=== PATIENT | male | born 1935 | race Caucasian/White ===

== ENCOUNTER → 2017-02-07 | Outpatient (CLI) | payer OTHER ==
[~2017-02-07] MED LIST: CLEOCIN HCL300 MG PO; LISINOPRIL20 MG PO; NORCO 5-325 TA1 EACH PO; PRILOSEC40 MG PO; TRAMADOL-ACETA1 EACH PO; XANAX 0.5 MG0.5 MG PO; ZIAC 2.5-6.251 EACH PO; ZOCOR20 MG PO
== END ==
LOC: RAD 08:54
DX: K44.9 Diaphragmatic hernia without obstruction or gangrene (principal)

== ENCOUNTER → 2017-04-03 | Outpatient (CLI) | payer OTHER ==
[~2017-04-03] VITALS: Ht 172.7 cm; Wt 59.4 kg
[~2017-04-03] MED LIST changes: +ALEVE220 MG PO
--- NOTE | ~2017-04-03 | HPC ---
[facility] [place] [address] PAIN MANAGEMENT CONSULTATION Name: RYAN KRUGER Room #: REG [facility].#: [id number] Admission: 04/03/17 Attend Phys: Ann Cates MD Discharge: Date of : 35 Report #: [id number] THIS REPORT FOR: //name// CC: Ann Mckeon MD DATE OF SERVICE: 04/03/2017 Seen on 04/03/[address] Janine Caets. PRIMARY CARE PHYSICIAN: Constantino Mckeon M.D. CHIEF COMPLAINT: "Pain in the right leg and I cannot walk or stand very long without it hurting." FOLLOWUP HISTORY: The patient is an 81-year-old gentleman who has been referred to the pain clinic for evaluation. The patient states that he likes to be very busy. He has noted some pain in his low back with radiation down into his leg, particularly on the right side. This was first encountered in mid January on about the . He denies any trauma. He notes that standing for some time can increase pain. He has difficulty shaving, brushing his teeth without onset of pain and discomfort in his back. He notes that activities of daily living such as cooking or standing in the kitchen can worsen his pain and discomfort. He notes this pain improves when he sits down. He is unable to lie on his stomach. This exacerbates pain in his back. He likes to lay on his side in a more position. He has difficulty walking outside and engaging in gardening and other things, which he likes to do. He knows that he must sit down after a short period of time. Walking in a store, use of a cart leaning over it improves his discomfort. He describes his discomfort as continuous, burning, shooting, throbbing and sharp. It can continue to increase in discomfort to the level of a 9. He has not had back surgery. ALLERGIES: SULFA, LIPITOR. MEDICATIONS: Naprosyn 220 mg p.r.n., Xanax 0.5 mg, Zocor 20 mg, Prilosec 40 mg, Zestril 20 mg, tramadol 37.5/325, Ziac 2.5/6.25. PAST MEDICAL HISTORY: 1. Bilateral numbness and tingling in his arms and legs. 2. Chest pain. 3. Essential hypertension. 4. Hearing problem. 5. Hyperlipidemia. 6. Insomnia. [facility] [address] [place] [address] PAIN MANAGEMENT CONSULTATION Name: RYAN KRUGER Room #: REG CL Tran#: [id number] Admission: 04/03/17 Attend Phys: Ann Cates MD Discharge: Date of : 35 Report #: [id number] PAST SURGICAL HISTORY: Appendectomy, cholecystectomy, hernia repair 02/2017, 05/2000, rotator cuff repair bilateral, tonsillectomy, wisdom teeth extraction. FAMILY HISTORY: Mother is , father is , father had heart problems. SOCIAL HISTORY: Smokes quarter of a pack of cigarettes per day, has smoked for 50 years. REVIEW OF SYSTEMS: Questionnaire in the chart, 14-point reveals recent weight change, decreased appetite, fatigue, weakness, wears glasses, hearing loss, loss of appetite, tremors, depression. LABORATORY DATA: No laboratory value is available at the time of our interview. PHYSICAL EXAMINATION: Blood pressure 151/81, pulse 64, respiratory rate 14, room air saturation is 96%. Height 5 feet 8 inches, weight 131 pounds, BMI 19. The patient has not fallen in the last 3 months. He has pain and discomfort in the lower portion of his back. He notes that standing for greater than 10 minutes can be problematic and bring on back pain, which radiates down the lower portion of his back into the L4-L5 distribution. He notes some pain in his right lower back as well as in the right groin area. He sometimes gets a burning stinging pain down into the anterior calf on the right hand side. Notes some weakness associated with this. IMPRESSION: Clinical findings consistent with spinal stenosis and lumbar radiculopathy. RECOMMENDATIONS: We discussed treatment options with the patient. Risks and benefits of an epidural steroid injection were discussed. A model was used to indicate the area of probable pathology. Risks and benefits of an epidural steroid injection, which could include infection, increased muscle soreness, headaches, bleeding, nerve damage were explained and the patient would like to proceed. We will petition his insurance company. After precertification, he will return to the pain clinic at which time he will undergo an epidural steroid injection to help with the lumbar radicular pain in the L5-S1, the L4-L5 lumbar radicular pain, which he is experiencing. By: [id number] Ann Cates MD /gillian
[2017-04-03 10:20] VITALS: BP 151/81
== END | disposition home or self-care (01) ==
LOC: PAIN 07:15
DX: M48.06 Spinal stenosis, lumbar region (principal); M54.16 Radiculopathy, lumbar region; I10 Essential (primary) hypertension; E78.5 Hyperlipidemia, unspecified; F17.210 Nicotine dependence, cigarettes, uncomplicated; Z79.899 Other long term (current) drug therapy; Z98.890 Other specified postprocedural states; Z90.49 Acquired absence of other specified parts of digestive tract; Z88.2 Allergy status to sulfonamides; Z88.8 Allergy status to other drugs, medicaments and biological substances

== ENCOUNTER → 2017-04-05 | Outpatient (CLI) | payer OTHER ==
[~2017-04-05] VITALS: Ht 172.7 cm; Wt 59.4 kg
--- NOTE | ~2017-04-05 | HPC ---
[facility] [place] [address] PAIN MANAGEMENT CONSULTATION Name: RYAN KRUGER [id number] Admission: 04/05/17 Attend Phys: Ann Cates MD Discharge: Date of : 35 Report #: [id number] THIS REPORT FOR: //name// CC: Ann Mckeon DATE OF SERVICE: 04/05/2017 FOLLOWUP COMPLAINT: Spinal stenosis and the insurance company has okayed the procedure. FOLLOWUP HISTORY: The patient is a very pleasant 81-year-old gentleman who has been seen in the pain clinic because of lumbar radiculopathy associated with spinal stenosis. He has pain which is radiating down into his legs with numbness and weakness. He has been approved by his insurance company to proceed with an epidural steroid injection. He has returned to the clinic for this procedure. He has had no new complications or complaints since we saw him last. PHYSICAL EXAMINATION: Blood pressure is 147/68, pulse 64, respiratory rate 12, room air saturation 97%. Height 5 feet 8 inches, weight 131 pounds, BMI is 19 and patient has pain and discomfort which is radiating down into the L4-L5 distribution in his legs. He has weakness, tenderness and discomfort. IMPRESSION: 1. Bilateral numbness and tingling in his arms and legs -- Lumbar radiculopathy. 2. Chest pain. 3. Essential hypertension. 4. Hearing problems. 5. Hyperlipidemia. 6. Insomnia. RECOMMENDATIONS: We discussed treatment options with the patient. Risks and benefits of an epidural steroid injection were again reviewed. Possible complications were explained. The patient will proceed with the procedure for spinal stenosis and lumbar radiculopathy. PROCEDURE NOTE: The patient was placed in the prone position. Fluoroscopy was used to identify the L4-L5 interspace. This area had been sterilely prepped with Betadine and infiltrated with 0.25% bupivacaine. Total of 80 mg Depo-Medrol, 40 mg triamcinolone and 2 mL of 0.25% bupivacaine was injected. The patient's pain decreased from 7 to 2 at the time of discharge. He will [address] [address] PAIN MANAGEMENT CONSULTATION Name: RYAN KRUGER [id number] Admission: 04/05/17 Attend Phys: Ann Cates MD Discharge: Date of : 35 Report #: [id number] follow up in the future as needed. We would like to thank you for letting us participate in his care. We hope he continues to improve. By: [id number] Ann Cates MD /
[2017-04-05 10:22] VITALS: BP 147/68
== END | disposition home or self-care (01) ==
LOC: PAIN 06:56
DX: M48.06 Spinal stenosis, lumbar region (principal); R07.9 Chest pain, unspecified; I10 Essential (primary) hypertension; E78.5 Hyperlipidemia, unspecified; G47.00 Insomnia, unspecified; F17.200 Nicotine dependence, unspecified, uncomplicated; Z88.2 Allergy status to sulfonamides; Z79.899 Other long term (current) drug therapy

== ENCOUNTER → 2017-04-24 | Outpatient (CLI) | payer OTHER ==
[~2017-04-24] VITALS: Ht 172.7 cm; Wt 60.3 kg
[~2017-04-24] MED LIST changes: +ASPIR 8181 MG PO; +SAVELLA25 MG PO
--- NOTE | ~2017-04-24 | HPC ---
[facility] [place] [address] PAIN MANAGEMENT CONSULTATION Name: RYAN KRUGER Room #: REG [facility].#: [id number] Admission: 04/24/17 Attend Phys: Ann Cates MD Discharge: Date of : 35 Report #: [id number] THIS REPORT FOR: //name// CC: Ann Mckeon MD DATE OF SERVICE: 04/24/2017 FOLLOWUP COMPLAINT: "I had greater than 50% improvement after the injection. I am still having some pain when I am walking." FOLLOWUP HISTORY: The patient is an 81-year-old gentleman who has been seen in the Pain Clinic because of spinal stenosis. He had bilateral numbness and tingling in his legs and has continuing to experience pain and discomfort in the L5 distribution, particularly on the right calf. He rates his pain as 10 with activity today. He notes the pain is worse when he is walking, prolonged standing, improves with sitting and denies any problems with bowel or bladder dysfunction after the last injection. PHYSICAL EXAMINATION: Blood pressure 165/91, pulse 65, respiratory rate 16, room air saturation 99%. The patient has pain and discomfort in the L4-L5 distribution with radiation down into his right leg, pain and discomfort in the L4-L5 distribution in his calf area. IMPRESSION: 1. Bilateral numbness and tingling in his legs with lumbar radiculopathy. 2. Chest pain. 3. Essential hypertension. 4. Hearing problems. 5. Hyperlipidemia. 6. Insomnia. RECOMMENDATIONS: We discussed treatment options with the patient. Risks and benefits of an epidural steroid injection were again reviewed. Complications were discussed. At this juncture, the patient will follow up in the Pain Clinic after his insurance company grants him the ability to undergo an epidural steroid injection. He will return to the Pain Clinic at which time an epidural steroid injection in the L4-L5 dermatomal distribution will be performed with use of fluoroscopy. [address] [address] PAIN MANAGEMENT CONSULTATION Name: RYAN KRUGER Room #: REG [facility]#: [id number] Admission: 04/24/17 Attend Phys: Ann Cates MD Discharge: Date of : 35 Report #: [id number] We would like to thank you for letting us participate in his care. We hope he continues to improve. By: 1202 0120 Ann Cates MD /
[2017-04-24 09:55] VITALS: BP 165/91
== END ==
LOC: PAIN 07:14
DX: M54.16 Radiculopathy, lumbar region (principal); I10 Essential (primary) hypertension; E78.4 Other hyperlipidemia; G47.09 Other insomnia; F17.210 Nicotine dependence, cigarettes, uncomplicated; Z88.8 Allergy status to other drugs, medicaments and biological substances

== ENCOUNTER → 2017-05-08 | Outpatient (CLI) | payer OTHER ==
[~2017-05-08] VITALS: Ht 172.7 cm; Wt 60.5 kg
--- NOTE | ~2017-05-08 | HPC ---
[facility] [place] [address] PAIN MANAGEMENT CONSULTATION Name: RYAN KRUGER Room #: REG [facility]#: [id number] Admission: 05/08/17 Attend Phys: Ann Cates MD Discharge: Date of : 35 Report #: [id number] THIS REPORT FOR: //name// CC: Ann Mckeon MD DATE OF SERVICE: 05/08/2017 FOLLOWUP COMPLAINT: Here for another injection. FOLLOWUP HISTORY: The patient is a very pleasant 81-year-old gentleman who has been seen in the pain clinic because of lumbar radiculopathy and spinal stenosis. He has undergone epidural steroid injection. He claims some benefits from the last injection, but continues to find that this pain is problematic and limits his ability to engage in activities of daily living. He rates his pain when he is up and ambulating as 8. He notes that the pain improves when he sits down and when he is not doing much activity. Pain radiates down into the lower portion of his back and into the right buttock. PHYSICAL EXAMINATION: Blood pressure 128/68, pulse 66, respiratory rate 14, room air saturation 97%. Height 5 feet 8 inches, weight 133 pounds, BMI is 20. The patient has pain and discomfort which is radiating down into the lower portion of his back in the L3-L4 distribution. IMPRESSION: 1. Bilateral numbness and tingling in his leg with lumbar radiculopathy. 2. History of chest pain. 3. Essential hypertension. 4. Hearing problems. 5. Hyperlipidemia. 6. Insomnia. RECOMMENDATIONS: We will proceed with another epidural steroid injection. Risks and benefits of the procedure were again reviewed. Possible complications were discussed. The patient elects to proceed. PROCEDURE NOTE: The patient was placed in the prone position. Fluoroscopy was used to identify the L3-L4 interspace. This area had been sterilely prepped with Betadine and infiltrated with 0.25% bupivacaine. Total of 80 mg Depo-Medrol, 40 mg triamcinolone, and 2 mL of 0.5% bupivacaine was injected. The patient tolerated the procedure well. There were no complications. [address] [address] PAIN MANAGEMENT CONSULTATION Name: RYAN KRUGER Room #: REG [facility] Tran#: [id number] Admission: 05/08/17 Attend Phys: Ann Cates MD Discharge: Date of : 35 Report #: [id number] We would like to thank you for letting us participate in his care. We hope he continues to improve. By: [id number] Ann Cates MD /SANTOS
[2017-05-08 10:11] VITALS: BP 128/68
== END | disposition home or self-care (01) ==
LOC: PAIN 07:16
DX: M54.16 Radiculopathy, lumbar region (principal); M48.06 Spinal stenosis, lumbar region; I10 Essential (primary) hypertension; E78.5 Hyperlipidemia, unspecified; G47.00 Insomnia, unspecified; F17.210 Nicotine dependence, cigarettes, uncomplicated

== ENCOUNTER → 2017-10-17 | Outpatient (CLI) | payer OTHER | LOC: RAD 10:58 | DX: J44.9 Chronic obstructive pulmonary disease, unspecified (principal); M47.894 Other spondylosis, thoracic region; R61 Generalized hyperhidrosis ==

== ENCOUNTER → 2018-02-07 | Outpatient (CLI) | payer OTHER | LOC: PET 09:04 | DX: J98.11 Atelectasis (principal); I71.4 Abdominal aortic aneurysm, without rupture; N28.1 Cyst of kidney, acquired; R91.1 Solitary pulmonary nodule ==

== ENCOUNTER → 2018-02-25 | Outpatient (CLI) | payer OTHER | LOC: CAT 06:54 | DX: N28.1 Cyst of kidney, acquired (principal); K63.89 Other specified diseases of intestine ==

== ENCOUNTER → 2018-06-18 | Outpatient (CLI) | payer OTHER ==
[2018-06-18 10:00] LABS: CREATININE 1.2 mg/dL (0.7-1.3)
== END ==
LOC: CAT 06-11 13:00
PROVIDERS: Family Medicine
DX: N28.1 Cyst of kidney, acquired (principal); R59.0 Localized enlarged lymph nodes; R91.1 Solitary pulmonary nodule

== ENCOUNTER → 2018-09-30 | Outpatient (CLI) | payer OTHER ==
[2018-09-30 09:49] LABS: CREATININE 1.2 mg/dL (0.7-1.3)
== END ==
LOC: CAT 09-18 13:22
PROVIDERS: Family Medicine
DX: K44.9 Diaphragmatic hernia without obstruction or gangrene (principal); N28.1 Cyst of kidney, acquired; I71.4 Abdominal aortic aneurysm, without rupture; J98.4 Other disorders of lung; R59.0 Localized enlarged lymph nodes; R91.1 Solitary pulmonary nodule

== ENCOUNTER → 2019-07-14 | Outpatient (CLI) | payer OTHER | LOC: CAT 08:56 | DX: R91.1 Solitary pulmonary nodule (principal); N28.1 Cyst of kidney, acquired; I25.10 Atherosclerotic heart disease of native coronary artery without angina pectoris; R91.8 Other nonspecific abnormal finding of lung field ==